=== PATIENT | female | born 1945 | race Caucasian/White ===

== ENCOUNTER 2020-07-21 10:24 | Emergency (ER) | payer MEDICARE ==
[2020-07-21] MEDS ORDERED: Ketorolac Tromethamine 30 MG/ML VIAL ONE (12:09)
== END 2020-07-21 13:54 | disposition home or self-care (01) ==
LOC: CSHERS 10:24
DX: S41.112A Laceration without foreign body of left upper arm, initial encounter (principal); S00.03XA Contusion of scalp, initial encounter; E03.9 Hypothyroidism, unspecified; I10 Essential (primary) hypertension; E11.9 Type 2 diabetes mellitus without complications; E78.5 Hyperlipidemia, unspecified; J44.9 Chronic obstructive pulmonary disease, unspecified; Z79.84 Long term (current) use of oral hypoglycemic drugs; Z79.899 Other long term (current) drug therapy; W01.10XA Fall on same level from slipping, tripping and stumbling with subsequent striking against unspecified object, initial encounter
CPT/HCPCS: 70450; 72125; 93005; 93010; 96374; J1885